=== PATIENT | male | born 1980 | race Hispanic/Latino ===

== ENCOUNTER 2018-07-07 06:39 | Day surgery (SDC) | payer OTHER ==
[2018-07-07] MEDS ORDERED: WATER FOR IRRIG STERILE ONE (07:30)
[2018-07-07] MEDS ORDERED: WATER FOR IRRIG STERILE IR ONE (07:30)
[2018-07-07] MEDS ORDERED: NACL 0.9% 1000 ML 1,000 ML IV SCH (08:00)
--- NOTE | 2018-07-07 08:03 | Anesthesia Consultation ---
Anesthesia Consult and Med Hx Date of service: 07/07/18 - Airway Anesthetic Teeth Evaluation: Poor ROM Head & Neck: Adequate Mental/Hyoid Distance: Adequate Mallampati Class: Class III Intubation Access Assessment: Probably Good - Pulmonary Exam CTA: Yes - Cardiac Exam Cardiac Exam: RRR - Pre-Operative Health Status ASA Pre-Surgery Classification: ASA3 Proposed Anesthetic Plan: MAC - Pre-Anesthesia Comment Pre-Anesthesia Comments: Tourettes syndrome - Pulmonary Hx Smoking: Yes Hx Asthma: Yes (inhaler prn ) COPD: Yes - Cardiovascular System Hx Hypertension: Yes - Central Nervous System CVA: Yes - Hematic Hx Anemia: Yes - Other Systems Hx Substance Use: Yes (marijuana )
--- NOTE | 2018-07-07 08:03 | Anesthesia Day of Surgery ---
Anesthesia Day of Surgery - Day of Surgery Patient Examined: Yes Patient H&P Reviewed: Yes Patient is NPO: Yes
[2018-07-07] MEDS ORDERED: VERSED ONE (08:41)
[2018-07-07] MEDS ORDERED: DIPRIVAN 10 MG/ML IV ONE ×3 (08:41)
--- NOTE | 2018-07-07 09:24 | Operative Report ---
Operative Report Operative Report: EGD Procedure Note Date of procedure: 07/07/2018 Endoscopist: Hira Harman Pre-op diagnosis: iron deficiency anemia Post-op diagnosis: large bezoar/retained food in stomach Anesthesia: MAC Complications: no immediate complications Estimated blood loss: none Procedure: After consent was obtained, the patient was placed in the left lateral decubitus position. The fujinon endoscope was inserted into the patient 's mouth under direct vision and advanced to the stomach (intended extent was to 2nd portion of duodenum). The procedure was aborted due to a large amount of retained food throughout the stomach precluding visualization. Findings: The esophagus appeared normal. There was a large amount of retained food/bezoar throughout the stomach. The procedure was aborted due to risks of aspiration and inability to visualize mucosa. Impression: 1. Large amount of retained food/bezoar in the stomach precluding visualization Recommendations: -findings likely suggest gastroparesis (possibly iatrogenic from medications) -obtain gastric emptying study as outpatient -consider further imaging based on labs and symptoms -colonoscopy to follow
--- NOTE | 2018-07-07 09:27 | Operative Report ---
Operative Report Operative Report: Colonoscopy Procedure Note Date of procedure: 07/07/2018 Endoscopist: Hira Harman Pre-op diagnosis: iron deficiency anemia Post-op diagnosis: poor prep, however no obvious mass or significant lesions in the colon Anesthesia: MAC Complications: no immediate complications Estimated blood loss: none Procedure: After consent was obtained, the patient was placed in the left lateral decubitus position. The fujinon colonoscope was inserted into the patient's rectum under direct vision, and advanced to the cecum without difficulty. The patient tolerated the procedure well. The quality of prep was poor. Findings: There was moderate amount of semi-liquid stool throughout the colon precluding detailed visualization. However, the entire colon was visualized and there was no obvious significant mass, blood, or other large lesions. Impression: 1. Poor prep, however no significant/obvious lesions were seen in the colon Recommendations: -follow-up in clinic as scheduled -trend labs. if remains anemic, may need to plan for repeat upper endoscopy
[2018-07-07 09:54] VITALS: BP 100/59
[2018-07-07] MEDS ORDERED: XYLOCAINE MPF 2% ONE (11:02)
== END 2018-07-07 06:40 | disposition home or self-care (01) ==
LOC: GIO 06:39
PROVIDERS: ATTEND Internal Medicine Gastroenterology
DX: D50.9 Iron deficiency anemia, unspecified (principal); G89.4 Chronic pain syndrome; I10 Essential (primary) hypertension; J44.9 Chronic obstructive pulmonary disease, unspecified; M19.90 Unspecified osteoarthritis, unspecified site; F32.9 Major depressive disorder, single episode, unspecified; F41.9 Anxiety disorder, unspecified; Z86.2 Personal history of diseases of the blood and blood-forming organs and certain disorders involving the immune mechanism; Z86.73 Personal history of transient ischemic attack (TIA), and cerebral infarction without residual deficits; Z88.6 Allergy status to analgesic agent; Z88.8 Allergy status to other drugs, medicaments and biological substances; Z79.899 Other long term (current) drug therapy; Z87.891 Personal history of nicotine dependence
CPT/HCPCS: 43235; 45378; J2250; J2704; J7030